=== PATIENT | male | born 1945 | race Caucasian/White ===

== ENCOUNTER 2018-03-02 09:14 | Emergency (ER) | payer OTHER ==
[~2018-03-02 09:14] MED LIST: ALLEGRA180 MG PO; ATORVASTATIN CA20 MG PO; AUGMENTIN 875 M1 TAB PO; BENADRYL ALLERG25 MG PO; LISINOPRIL10 MG PO; NASACORT A55 MCG/Act NASB; PEPCID20 MG PO; SERTRALINE HYDR50 MG PO; TOPCARE OMEPRAZ20 MG PO
[2018-03-02 09:20] VITALS: BP 161/87
--- NOTE | 2018-03-02 11:14 | ED HAND/WRIST INJURY COMPLAINT ---
History of Present Illness General Chief Complaint: Hand or Wrist Injury Stated Complaint: BIBA RT HAND PAIN Source: patient, family Exam Limitations: no limitations Vital Signs & Intake/Output Vital Signs & Intake/Output Vital Signs Date Time Temp Pulse Resp B/P B/P Pulse O2 O2 Flow FiO2 Mean Ox Delivery Rate 03/02 0920 98.3 60 18 161/87 98 Room Air Allergies Coded Allergies: Sulfa (Sulfonamide Antibiotics) (UNKNOWN 03/02/18) Reconcile Medications AMOXICILLIN/POTASSIUM CLAV (Augmentin 875-125 Tablet) 875 MG/125 MG TAB 1 TAB PO BID cellulitis Atorvastatin Calcium (Lipitor) 20 MG TABLET 1 TAB PO DAILY CHOLESTEROL ( Reported) DIPHENHYDRAMINE HCL (Benadryl Allergy) 25 MG TABLET 1-2 TAB PO Q6P PRN ALLERGY Famotidine (Pepcid) 20 MG TAB 1 TAB PO BID BEE STING Fexofenadine Hydrochloride (Jade) 180 MG TAB 1 TAB PO DAILY ALLERGIES ( Reported) Lisinopril 10 MG TABLET 1 TAB PO DAILY BP (Reported) Omeprazole 20 MG TABLET.DR 1 TAB PO DAILY GI (Reported) Prednisone (Deltasone) 20 MG TABLET 2 TAB PO DAILY inflammation SERTRALINE HCL (Sertraline Hydrochloride) 50 MG TABLET 1 TAB PO DAILY ANXIETY (Reported) Triamcinolone Acetonide (Nasacort Aq) 55 MCG/Actuation SPR 2 SPRAY NASB DAILY ALLERGIES (Reported) Triage Note: 73 YO MALE MAX FROM HOME FOR EVAL OF R HAND PAIN. REPORTS THIS IS AN ONGOING ISSUSE AND HE IS TOLD ITS ARTHRITIS. STATES WAS GIVEN PAIN MEDCIATION AND A BRACE ON HIS R ARM AND IT HASNT BEEN WORKING. Triage Nurses Notes Reviewed? yes Duration: week(s): Timing: recent history Injury Environment: home Severity: severe Pain/Injury Location: Right: Wrist, Hand. HPI: 73yo male with hx of arthritis presents to ED complaining of worsening right wrist and hand pain for the past 3 weeks. Patient reports paresthesais of the hand at times. The patient saw his orthopedic doctor yesterday and had x-rays performed. He was started on Vicodin and an NSAID. Patient also was given a wrist splint. Patient states the wrist splint to medications help however he is still in significant pain. Patient is requesting a local cortisone injection to help with his pain. Orthopedic that he saw yesterday would not give him the injection however he has seen an orthopedic in the past which he is trying to follow-up with instead. No trauma prior to onset of symptoms. (Eleonora Peterson) Past History Travel History Traveled to [place] past 21 day No Medical History Any Pertinent Medical History? see below for history Neurological: NONE EENT: NONE Cardiovascular: hyperlipidemia, HTN Respiratory: NONE Gastrointestinal: NONE Hepatic: NONE Renal: NONE Musculoskeletal: ARTHITIS Psychiatric: NONE Endocrine: NONE Blood Disorders: NONE Cancer(s): NONE BUSINESS APPLICATIONS SPECIALIST/Reproductive: NONE Surgical History Surgical History: non-contributory Psychosocial History What is your primary language Khmer Tobacco Use: Never used Family History Hx Contributory? No (Eleonora Peterson) Review of Systems Review of Systems Constitutional: Reports: no symptoms. EENTM: Reports: no symptoms. Respiratory: Reports: no symptoms. Cardiovascular: Reports: no symptoms. GI: Reports: no symptoms. Genitourinary: Reports: no symptoms. Musculoskeletal: Reports: see HPI. Skin: Reports: no symptoms. Neurological/Psychological: Reports: see HPI. Hematologic/Endocrine: Reports: no symptoms. Immunologic/Allergic: Reports: no symptoms. All Other Systems: Reviewed and Negative (Eleonora Peterson) Physical Exam Physical Exam General Appearance: well developed/nourished, no apparent distress, alert, awake Head: atraumatic, normal appearance Eyes: Bilateral: normal appearance. Ears, Nose, Throat: hearing grossly normal Neck: normal inspection, supple, full range of motion Cardiovascular/Respiratory: normal peripheral pulses, no respiratory distress Back: normal inspection, normal range of motion Elbow Left: normal range of motion, normal inspection Elbow Right: normal range of motion, normal inspection Forearm Left: normal range of motion, normal inspection Forearm Right: normal range of motion, normal inspection Wrist Left: normal range of motion, normal inspection Wrist Right: normal range of motion, normal inspection, nontender Hand Left: normal inspection, normal range of motion Hand Right: normal inspection, normal range of motion, no gross deformity, no skin changes, nontender Neurologic/Tendon: normal sensation, normal motor functions, normal tendon functions, no pulse deficit Skin: intact, normal color, warm/dry (Eleonora Peterson) Progress Differential Diagnosis: cellulitis, contusion, gout, septic arthritis, sprain, arthritis Plan of Care: Current Medications Sig/Kia Start time Last Medication Dose Stop Time Status Admin Ketorolac 30 MG ONCE ONE 03/02 1115 UNVr Tromethamine 03/02 1116 (Toradol) Patient has recent x-rays performed yesterday was orthopedic doctor's office. There are no skin changes or erythema, patient afebrile, low suspicion for septic arthritis. Distal pulses and capillary refill are intact. Patient's symptoms have been present for several weeks. I informed the patient we could not provide local injections however I did offer IM Toradol which she accepts. He shouldn't seen and evaluated by Dr. Velasco. Will initiate prednisone and have patient follow up with orthopedic. Patient to continue pain medications as prescribed by her orthopedic and wrist splint. Patient agrees with the plan of care. (Ethel JENKINS,Eleonora Short) Departure Departure Disposition: HOME OR SELF CARE Condition: Stable Clinical Impression Primary Impression: Hand pain Qualifiers: Laterality: right Qualified Code: M79.641 - Pain in right hand Referrals: Sofia MERCADO PHD,Bryce Sagastume (PCP/Family) Additional Instructions: Continue to wear brace and take your medications as precribed by the orthopedic. Take Prednisone as prescribed. Return with worsening symptoms or concerns. Please note that there might be incidental findings in your evaluation that are unrelated to the current emergency department visit. Please notify your primary care doctor about this emergency department visit in order to obtain and review all of the testing performed so that these incidental findings can be monitored as needed. If you had an x-ray performed, please understand that some fractures may not be seen on the initial set of x-rays. If your symptoms persist you might need a repeat set of x-rays to check for such a fracture. If you had a laceration evaluated, please understand that foreign bodies such as glass or wood may not be visible to the naked eye or on plain x-rays. If the wound becomes red, swollen, increasingly more painful or if there is any drainage from the wound, please have it reevaluated by a physician for the possibility of a retained foreign body. If you're unable to follow up as outlined in the discharge instructions please return to the emergency department. Thank you for choosing the [facility] Emergency Department for your care. It was a pleasure to serve you today. Departure Forms: Customer Survey General Discharge Information Prescriptions: Current Visit Scripts Prednisone (Deltasone) 2 TAB PO DAILY #10 TAB (Ethel JENKINS,Eleonora Short) PA/COMPLIANCE REVIEW OFFICER Co-Sign Statement Statement: ED Attending supervision documentation- [X] I saw and evaluated the patient. I have also reviewed all the pertinent lab results and diagnostic results. I agree with the findings and the plan of care as documented in the PA's/COMPLIANCE REVIEW OFFICER's documentation. [] I have reviewed the ED Record and agree with the PA's/COMPLIANCE REVIEW OFFICER's documentation. [] Additions or exceptions (if any) to the PAs/COMPLIANCE REVIEW OFFICER's note and plan are summarized below: [] (Amanuel Velasco DO
[2018-03-02] MEDS ORDERED: DELTASONE20 MG PO (11:28)
== END 2018-03-02 11:34 ==
LOC: ERH 09:14
DX: M79.641 Pain in right hand (principal)
CPT/HCPCS: 96372; J1885